=== PATIENT | male | born 2005 | race Caucasian/White ===

== ENCOUNTER 2023-11-05 22:29 | Emergency (ER) | payer BC, SELFPAY ==
[2023-11-05 22:32] VITALS: BP 155/123; PULSE 60; RESP 18; TEMP 35.6; O2SAT 95
--- NOTE | 2023-11-05 22:38 | EDS_ITS ---
HPI History of Present Illness Chief Complaint: Abd Pain [facility] Medical History Chronic idiopathic thrombocytopenic purpura Home Medications ?Medication ?Instructions ?Recorded ?Last Taken ?Type dicyclomine 10 mg capsule 10 mg PO TID 11/05/23 11/05/23 History ondansetron 4 mg disintegrating 4 mg PO Q8H PRN PRN Nausea #10 tabs 11/06/23 Unknown Rx tablet Family History no significant family his Surgical History no surgical history Social History Smoking Status: Never smoker EXAM Physical Exam Const Vital Signs: 11/05/23 22:32 11/06/23 00:30 11/06/23 01:59 Temperature 96.1 F L 98.2 F 98.8 F Temperature Source Temporal Oral Pulse Rate 60 99 99 Respiratory Rate 18 18 16 Blood Pressure 155/123 H 109/64 109/64 Blood Pressure Mean 133 79 79 Pulse Ox 95 97 98 Oxygen Delivery Method Room Air [facility] MDM MDM Narrative Medical decision making narrative: HISTORY OF PRESENT ILLNESS: 18-year-old male presents with concern for nausea vomiting diarrhea. States he may have gotten into the river. Patient further states this began after Benadryl yesterday. Notes he is with several people some of them are 6 and whether or not. He is concerned about nausea vomiting diarrhea. Notes he is vomiting yellow, vomit approximate 20 times. Notes diffuse abdominal pain. Denies any chest pain or shortness of breath. REVIEW OF SYSTEMS: Pertinent positives: Abdominal pain, nausea vomiting diarrhea Pertinent negatives: fever, Melena, hematochezia, PHYSICAL EXAM: Nursing triage notes reviewed, Vital signs reviewed Constitutional: please see mdm HENT: MMM Eyes: Pupils equal round and reactive to light, Extraocular muscles intact Neck: No stridor, no JVD, full neck ROM Lungs: Clear to auscultation, No wheezing or rales. No increased work of br eathing, no conversational dyspnea, no accessory muscle use, no nasal flaring. No respiratory distress noted Heart: Regular rate and rhythm, No murmurs, No rubs and No gallops, 2+ distal pulses (radial, femoral, posterior tibial) in all extremities Abdomen: Soft, there is no tenderness, rigidity, rebound or guarding, no obvious peritoneal signs, no palpable pulsatile abdominal masses, no auscultated abdominal bruit : No CVAT Extremities: No edema Neuro: No focal neurological deficits, cranial nerves II through XII intact, 5/5 strength in all extremities. Intact sensation to light touch in all extremities, 2+ reflexes bilateral patella tendons. Normal gait. No ataxia. Skin: No rash or lesions noted MEDICAL DECISION MAKING: Chief Complaint: Abdominal pain, nausea vomiting diarrhea External records reviewed: Prior inpatient records reviewed: No recent patient records in [facility] Factors affecting care: none Social determinants of health: none History obtained from others: none Consults: none [facility] Narrative: The patient was initially afebrile, nontoxic-appearing. Exam benign. No peritoneal signs. No right lower quadrant or right upper quadrant tenderness. Patient is not jaundiced. I considered the following differential diagnosis: Dehydration, electrolyte disturbance, surgical pathology the abdomen (acute appendicitis, cholelithiasis, acute cholecystitis), invasive diarrheal infection (E. coli, Shigella, Giardia) I obtained a broad lab workup to further elucidate the etiology the patient's complaints. Given the benign nature of his abdominal exam I do not pursue advanced imaging at this time including CT or ultrasound. While I considered the studies had nothing to indicate at this time and benign nature abdominal exam symptoms more consistent with a viral bacterial gastroenteritis. ALL IMAGES (IF OBTAINED) HAVE BEEN PERSONALLY REVIEWED AND INTERPRETED BY MYSELF. EKG with normal sinus rhythm, normal axis, normal intervals, no STEMI, no signs of electrolyte disturbances CBC with leukocytosis suggestive of systemic inflammation, is likely reactive, noted thrombocytopenia CMP without evidence of acute kidney injury, significant electrolyte abnormality, anion gap, metabolic acidosis, no evidence hepatobiliary pathology. Lipase is wnl indicating no pancreatic inflammation. Urinalysis shows no evidence of urinary inflammation suggestive of UTI Patient was reevaluated at approximately 1:30 AM. Repeat abdominal exam is benign. No right upper quadrant right lower quadrant TTP. No peritoneal signs. No indication for advanced imaging despite having elevated white blood cell count. In addition patient is status post appendectomy. He had no right lower quadrant tenderness. He also did not have any right upper quadrant tenderness, jaundice or evidence of hepatobiliary obstruction on his labs. CT scan of the abdomen pelvis, upper quadrant ultrasound not indicated at this time. Patient is able tolerate p.o. fluids. He noted that he felt slightly better after interventions including IV fluids Zofran and Pepcid. Will give Zofran for home- going. Give additional dose of IV Zofran prior to discharge. Awaiting stool culture results. Strict return precaution were discussed. Zofran given for home-going. The patient and/or family, caregivers express understanding. The patient and/or family, caregivers agrees with the plan. Shared decision making: I will have a discussion with the patient and or visitors regarding risk/benefits of further testing or admission. They will be made aware of of the risk/benefits inherent in this decision they will be given the opportunity to voice understanding. Total critical care time today provided was at least 0 minutes. This excludes separately billable procedures. Critical care time (if documented) is secondary to the patient having high probability of clinically significant/life threatening deterioration in the patient's condition which required my urgent intervention. Impression: 1. Nausea vomiting diarrhea 2. Dehydration 3. Abdominal pain Dispo: Discharge home This note was generated with [employer] dictation software. It may contain incorrect words, spelling, and punctuation that were not noted in review of the chart prior to signing. Lab Data Labs: Laboratory Results - last 24 hr 11/05/23 11/05/23 11/06/23 23:16 23:25 00:03 WBC 16.4 H RBC 4.68 Hgb 14.0 Hct 41.8 MCV 89.3 MCH 29.9 MCHC 33.5 RDW Std Deviation 40.7 RDW Coeff of [place] 12.5 Plt Count 108 L MPV 11.0 Immature Gran % (Auto) 2.700 H Neut % (Auto) 88.3 H Lymph % (Auto) 2.6 L [place] % (Auto) 5.7 Eos % (Auto) 0.3 Baso % (Auto) 0.4 Absolute Neuts (auto) 14.5 H Absolute Lymphs (auto) 0.42 L Nucleated RBC % 0 Sodium 139 Potassium 3.7 Chloride 105 Carbon Dioxide 24.0 Anion Gap 10 BUN 21 H Creatinine 1.20 Est GFR (MDRD) Af Amer 99 Est GFR (MDRD) Non-Af 81 BUN/Creatinine Ratio 17.5 Glucose 123 H Calcium 9.7 Total Bilirubin 0.70 Direct Bilirubin 0.16 AST 36 ALT 39 Alkaline Phosphatase 83 Total Protein 8.3 H Albumin 4.8 Globulin 3.5 Lipase 26 Urine Color Yellow Urine Clarity Clear Urine pH 5.0 Ur Specific Hines 1.025 Urine Protein 30 H Urine Glucose (UA) Normal Urine Ketones 150 A* Urine Occult Blood Negative Urine Nitrite Negative Urine Bilirubin 1 H Urine Urobilinogen 1 H Ur Leukocyte Esterase 25 H Urine RBC 0 SEEN Urine WBC 0-5 SEEN Ur Squamous Epith Cells 0 SEEN Urine Bacteria 2+ Urine Mucus 2+ Discharge Plan Triage Chief Complaint: Abd Pain ED Provider: Bhavin Dixon Dx/Rx/DC Orders Instructions: Abdominal Pain Prescriptions: New ondansetron 4 mg tablet,disintegrating 4 mg PO Q8H PRN PRN (Reason: Nausea) Qty: 10 0RF No Action dicyclomine 10 mg capsule 10 mg PO TID Primary Care Provider: Henry Harrell Referrals: Henry Harrell MD [Primary Care Provider] - Activity Restrictions/Additional Instructions: Thank you for trusting us with your care today! Total bilirubin levels today was 0.7, direct bilirubin was 0.16, AST/ALT was 36/39, alkaline phosphatase 83 Please take Tylenol (2 pills, 650 mg), ibuprofen (2 pills, 400 mg) every 6 hours as needed for pain and fever control. Please take Zofran as needed. Please keep up with fluid losses by replacing any loose stools with oral fluid intake. Recommend Body Armor Pedialyte or Gatorade. Please return to the emergency department if your symptoms change or worsen. Please follow with your primary care physician for further outpatient evaluation and management. Print Language: [place] Disposition Disposition: Home, Self Care Discharge Date/Time: 11/06/23 02:01
--- NOTE | 2023-11-05 22:47 | EKG12_ITS ---
Test Reason : ABD PAIN Blood Pressure : / mmHG Vent. Rate : 096 BPM Atrial Rate : 096 BPM P-R Int : 148 ms QRS Dur : 098 ms QT Int : 348 ms P-R-T Axes : 086 081 075 degrees QTc Int : 439 ms Normal sinus rhythm RSR' or QR pattern in V1 suggests right ventricular conduction delay Borderline ECG Confirmed by Homero Dennis ([id number]), commissioning editor TESSA CLARKE ([id number]) on 11/07/2023 1:46:35 PM Referred By: Confirmed By:Homero Dennis
[2023-11-05] MEDS: Ondansetron 4 MG/2 ML Vial IV (23:09)
[2023-11-05] MEDS: 0.9% Normal Saline (1000mL) 1,000 ML 999 ML IV (23:09)
[2023-11-05] MEDS: Famotidine 200 MG/20 ML MDV 20 MG in 0.9% Normal Saline (Pres. free 8 ML 300 MG IV (23:09)
[2023-11-05] MEDS: Ketorolac 15 MG/ML Vial IV (23:09)
[2023-11-05 23:36] LABS: Red Blood Cells-Urine 0 SEEN /hpf (0-5); Squamous Epithelial Cells - UA 0 SEEN /hpf (0-5)
[2023-11-05 23:39] LABS: Glucose, Dipstick Normal (Normal); Leukocyte Esterase-Dipstick 25 /ul (Negative); Nitrite-Dipstick Negative (Negative); Occult Blood-Urine Negative /ul (Negative); Protein-Dipstick 30 mg/dl (Negative); Specific Gravity, Urine 1.025 (1.002-1.030); Urine Urobilinogen 1 mg/dl (Normal)
[2023-11-05 23:40] LABS: Color, Urine Yellow (Yellow); Urine Bilirubin Dipstick 1 mg/dL (Negative); Urine Clarity Clear (Clear)
[2023-11-05 23:40] LABS: AST(SGOT) 36 U/L (15-37); Alanine Aminotransfer ALT/SGPT 39 U/L (16-61); Albumin, Serum 4.8 g/dL (3.2-5.0); Alkaline Phosphatase 83 U/L (45-117); Anion Gap 10 (5-15); BUN 21 mg/dL (7-18); BUN/Creat Ratio 17.5 RATIO (10-20); Bilirubin, Direct 0.16 mg/dL (0.00-0.30); Calcium,Total 9.7 mg/dL (8.5-10.1); Chloride 105 mmol/L (98-107); EST Glomerular Filtration Rate 81 mL/min (>60); Est Glom Filt Rate - Afr Amer 99 mL/min (>60); Globulin 3.5 g/dL (2.2-4.2); Glucose 123 mg/dL (74-106); Lipase 26 U/L (13-75); Potassium 3.7 mmol/L (3.5-5.1); Protein, Total 8.3 g/dL (6.4-8.2); Sodium Level 139 mmol/L (136-145)
[2023-11-05 23:41] LABS: Ketone-Dipstick 150 mg/dl (Negative)
[2023-11-05 23:46] LABS: Bacteria 2+ /hpf (None Seen); Mucous, Urine 2+ /hpf (<or=2+); White Blood Cells 0-5 SEEN /hpf (0-5)
[2023-11-06 00:30] VITALS: BP 109/64; PULSE 99; RESP 18; TEMP 36.8; O2SAT 97
[2023-11-06 00:42] LABS: Absolute Lymphocyte Count 0.42 X10^3/uL (0.83-4.51); Absolute Neutrophil Count 14.5 X10^3/uL (2.0-7.7); Basophil# 0.06 X10^3/uL; Basophil% 0.4 % (0-1); Eosinophil# 0.05 X10^3/uL; Eosinophils% 0.3 % (0-5); Hematocrit 41.8 % (40-54); Lymphocyte # 0.42 X10^3/ul (0.83-4.51); Lymphocyte % 2.6 % (19-41); Mean Corp Hgb Conc 33.5 g/dL (32-36); Mean Corpuscular Hgb 29.9 pg (27.0-32.0); Mean Corpuscular Volume 89.3 fL (80-94); Monocyte# 0.94 X10^3/uL; Monocyte% 5.7 % (0-10); NRBC Flagged by Analyzer 0 % (0-5); Neutrophil # 14.46 X10^3/uL (2.7-7.7); Neutrophil % 88.3 % (47-70); POSITIVE DIFFERENTIAL YES; Platelet Count 108 K/mm3 (150-450); RBC Distribution Width CV 12.5 % (11.6-14.6); RBC Distribution Width SD 40.7 fl (35.1-43.9); Red Blood Count 4.68 M/mm3 (4.6-6.2); White Blood Count 16.4 K/mm3 (4.4-11.0)
[2023-11-06] MEDS: Ondansetron 4 MG/2 ML Vial IV (01:47)
[2023-11-06 01:59] VITALS: BP 109/64; PULSE 99; RESP 16; TEMP 37.1; O2SAT 98
== END 2023-11-06 02:01 | disposition home or self-care (01) ==
PROVIDERS: Emergency Provider Emergency Medicine; PCP Internal Medicine; Visit Provider Emergency Medicine
DX: R11.2 Nausea with vomiting, unspecified (principal); E86.0 Dehydration; R19.7 Diarrhea, unspecified; Z79.899 Other long term (current) drug therapy; R10.84 Generalized abdominal pain
CPT/HCPCS: 80048; 80076; 81001; 83690; 85025; 87177; 87209; 87506; 93005; 96361; 96365; 96375; 96376; 99283; J7030; J2405; J3490